=== PATIENT | male | born 1980 | race Caucasian/White ===

== ENCOUNTER 2019-12-01 10:39 | Emergency (ER) | payer OTHER ==
[~2019-12-01] VITALS: Ht 193 cm; Wt 89.8 kg
[~2019-12-01 10:39] MED LIST: ACYC400 PO; ALBU90OI INH; ATEN25; ATEN50 PO; AZIT250 PO; CEPH500 PO; CIPR500 PO; CITA20; CLOT1TC TOP; CODACE30 PO; CYCL10; CYCL10 PO; Cheratussin AC118 ML PO; Cleocin HCl300 MG PO; DOCU100 PO; DOXY100 PO; FAMO20 PO; Flonase 0.05% N16 GM; GUAI600T33 PO; GUAPSEER PO; HYDACE10B PO; HYDACE5 PO; HYDPAM50; IBUP600; IBUP800 PO; KETO10 PO; LORA1 PO; NAPR250 PO; NAPR375; NAPR500 PO; NEOPOLHYDS OT; OXYACE5T; OXYACE5T PO; PRED20 PO; PROC10 PO; PSEU120ER PO; RANI150; RXCODACET PO; RXHYDACE PO; RXSULTRIDS PO; SULTRIDS PO; Sudogest30 MG PO; TRAM50 PO; UNK ABX; UNKNOWN BP MED; [UNRECOGNIZED DRUG - REMARK]
[2019-12-01] MEDS ORDERED: Roxicodone5 MG PO (11:25)
[2019-12-01] MEDS ORDERED: ONDA4ODT MM (11:25)
[2019-12-01] MEDS ORDERED: Cleocin HCl300 MG PO (11:25)
== END 2019-12-01 11:49 | disposition home or self-care (01) ==
LOC: ER 10:39
DX: K08.89 Other specified disorders of teeth and supporting structures (principal); I10 Essential (primary) hypertension; J45.909 Unspecified asthma, uncomplicated; Z88.0 Allergy status to penicillin; Z91.030 Bee allergy status; Z91.02 Food additives allergy status; Z88.8 Allergy status to other drugs, medicaments and biological substances; Z88.5 Allergy status to narcotic agent; Z79.899 Other long term (current) drug therapy; Z87.891 Personal history of nicotine dependence
CPT/HCPCS: 99283

== ENCOUNTER 2020-01-13 14:56 | Observation (INO) | payer OTHER ==
[~2020-01-13] VITALS: Ht 188 cm; Wt 89.0 kg
[~2020-01-13 14:56] MED LIST changes: +ONDA4ODT MM; +Roxicodone5 MG PO
[2020-01-13 15:41] LABS: BASOPHILS ABSOLUTE AUTO 0.04 K/mm3 (0.00-0.23); BASOPHILS PERCENT AUTO 1 % (0-2); EOSINOPHILS ABSOLUTE AUTO 0.18 K/mm3 (0.00-0.68); EOSINOPHILS PERCENT AUTO 3 % (0-6); Hematocrit 47.9 % (37.0-53.0); Hemoglobin 16.2 g/dL (13.5-17.5); IMMATURE GRAN ABSOLUTE AUTO 0.02 K/mm3 (0.00-0.10); IMMATURE GRAN PERCENT AUTO 0 % (0-1); LYMPHOCYTES ABSOLUTE AUTO 1.56 K/mm3 (0.84-5.20); LYMPHOCYTES PERCENT AUTO 23 % (21-46); MONOCYTES ABSOLUTE AUTO 0.47 K/mm3 (0.16-1.47); MONOCYTES PERCENT AUTO 7 % (4-13); Mean Corpuscular HGB 30.9 pg (26.0-34.0); Mean Corpuscular HGB Conc 33.8 g/dL (31.5-36.5); Mean Corpuscular Volume 91 fL (80-100); NEUTROPHILS ABSOLUTE AUTO 4.59 K/mm3 (1.96-9.15); NEUTROPHILS PERCENT AUTO 67 % (41-73); Platelet Count 122 K/mm3 (150-400); RDW Coefficient Variation 12.7 % (11.7-14.2); RDW Standard Deviation 42.9 fL (35.1-46.3); Red Blood Cell Count 5.24 M/mm3 (4.30-5.90); White Blood Cell Count 6.86 K/mm3 (4.00-11.30)
[2020-01-13] MEDS ORDERED: AMLO5 PO (15:41)
[2020-01-13] MEDS ORDERED: Lisinopril2.5 MG PO (15:42)
[2020-01-13] MEDS ORDERED: SERT100 PO (15:42)
[2020-01-13] MEDS ORDERED: CLON.1 PO (15:42)
[2020-01-13] MEDS ORDERED: OMEP20ER PO (15:43)
[2020-01-13 15:54] LABS: Alanine Aminotransfer (ALT/SGP 73 U/L (12-78); Albumin, Blood 3.8 g/dL (3.4-5.0); Albumin/Globulin Ratio 1.1 (0.8-1.8); Alk Phos 96 U/L (50-136); Anion Gap 5 mmol/L (6-16); Aspartate Aminotrans (AST/SGOT 34 U/L (12-37); Bilirubin, Total 0.5 mg/dL (0.1-1.0); Blood Urea Nitrogen 14 mg/dL (8-24); Bun/Creatinine Ratio 16.5 (12.0-20.0); CO2, Blood 27 mmol/L (21-32); Calcium, Blood 8.7 mg/dL (8.5-10.1); Chloride, Blood 109 mmol/L (98-108); Creatinine, Blood 0.85 mg/dL (0.60-1.20); Globulin, Blood 3.5 g/dL (2.2-4.0); Glomerular Filtration Rate >60 (60-); Glucose, Blood 81 mg/dL (70-99); Potassium, Blood 3.8 mmol/L (3.5-5.5); Sodium, Blood 141 mmol/L (136-145); Total Protein, Blood 7.3 g/dL (6.4-8.2); Troponin I <0.015 ng/mL (0.000-0.040)
--- NOTE | 2020-01-13 16:31 | NUR ---
Echocardiogram completed.
[2020-01-13 17:25] LABS: U Amphetamine Screen Not Detected; U Barbituate Screen Not Detected; U Benzodiazapine Screen Not Detected; U Buprenorphine Screen Not Detected; U Cannabinoids Screen Not Detected; U Cocaine Screen Not Detected; U Methadone Screen Not Detected; U Methamphetamine Screen Not Detected; U Opiates Screen Not Detected; U Oxycodone Screen Not Detected; U Phencyclidine Screen Not Detected; U Propoxyphene Screen Not Detected
--- NOTE | 2020-01-13 23:27 | NUR ---
CHEST PAIN/CHEST PALPATIONS PT CHEST PAIN HAS IMPROVED WITH SCHEDULED IV TORADOL. PT PAIN DECREASED FROM 5 TO 3-4 (0-10). HOWEVER, PT COMPLAINING OF CHEST PALPATIONS, AND INCREASED PAIN WITH THE PALPATATIONS THAT GO FROM 3-5 (0-10). TELE IN PLACE WITH OCCASIONAL PVC'S. 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 PT COMPLAINING OF NAUSEA AND SOME SOB WITH THE PALPATIONS. MEDICATED FOR NAUSEA. DR. LONDON CALLED AND NOTIFIED OF PT CHEST PALPATIONS AND PAIN. RECEIVED ORDER FOR PO POTASSIUM TO HELP EASE PALPATIONS. AND MELATONIN FOR SLEEP. NO ADDITIIONAL ORDERS FOR CHEST PAIN. WILL CONTINUE TO MONITOR.
[2020-01-14 03:05] LABS: BASOPHILS ABSOLUTE AUTO 0.04 K/mm3 (0.00-0.23); BASOPHILS PERCENT AUTO 1 % (0-2); EOSINOPHILS ABSOLUTE AUTO 0.25 K/mm3 (0.00-0.68); EOSINOPHILS PERCENT AUTO 4 % (0-6); Hematocrit 44.1 % (37.0-53.0); Hemoglobin 14.8 g/dL (13.5-17.5); IMMATURE GRAN ABSOLUTE AUTO 0.02 K/mm3 (0.00-0.10); IMMATURE GRAN PERCENT AUTO 0 % (0-1); LYMPHOCYTES PERCENT AUTO 32 % (21-46); MONOCYTES ABSOLUTE AUTO 0.45 K/mm3 (0.16-1.47); MONOCYTES PERCENT AUTO 6 % (4-13); Mean Corpuscular HGB 30.9 pg (26.0-34.0); Mean Corpuscular HGB Conc 33.6 g/dL (31.5-36.5); Mean Corpuscular Volume 92 fL (80-100); Mean Platelet Volume 12.6 fL (9.1-12.4); NEUTROPHILS ABSOLUTE AUTO 4.03 K/mm3 (1.96-9.15); NEUTROPHILS PERCENT AUTO 57 % (41-73); Platelet Count 110 K/mm3 (150-400); RDW Coefficient Variation 12.9 % (11.7-14.2); RDW Standard Deviation 43.8 fL (35.1-46.3); Red Blood Cell Count 4.79 M/mm3 (4.30-5.90); White Blood Cell Count 7.09 K/mm3 (4.00-11.30)
[2020-01-14 03:32] LABS: Alanine Aminotransfer (ALT/SGP 62 U/L (12-78); Albumin, Blood 3.4 g/dL (3.4-5.0); Albumin/Globulin Ratio 1.1 (0.8-1.8); Alk Phos 79 U/L (50-136); Anion Gap 2 mmol/L (6-16); Aspartate Aminotrans (AST/SGOT 30 U/L (12-37); Bilirubin, Total 0.4 mg/dL (0.1-1.0); Blood Urea Nitrogen 16 mg/dL (8-24); Bun/Creatinine Ratio 17.8 (12.0-20.0); CHOL/HDL RATIO 3.7; CO2, Blood 30 mmol/L (21-32); Calcium, Blood 8.2 mg/dL (8.5-10.1); Chloride, Blood 106 mmol/L (98-108); Cholesterol 149 mg/dL (50-200); Glomerular Filtration Rate >60 (60-); Glucose, Blood 88 mg/dL (70-99); HDL Cholesterol 40 mg/dL (>39); LDL/HDL RATIO 2.2; Low Density Lipoprotein Chol 89 mg/dL (0-110); Potassium, Blood 4.3 mmol/L (3.5-5.5); Sodium, Blood 138 mmol/L (136-145); Total Protein, Blood 6.4 g/dL (6.4-8.2); Triglycerides 100 mg/dL (30-160); Troponin I <0.015 ng/mL (0.000-0.040); Very Low Density Lipoprot Chol 20 mg/dL (6-32)
--- NOTE | 2020-01-14 05:21 | NUR ---
SHIFT SUMMARY PT HAS CHEST PAIN OVERNIGHT THAT HAS GRADUALLY RESOLVED T/O THE NIGHT. PT PAIN WAS 5(0-10) AND CAME DOWN TO A 2 (0-10). PT MEDICATED WITH IV TORADOL WHICH PROVIDED RELIEF. PT SB ON TELE WITH OCCASIONAL PVC'S. PT REPORTS FEELING CHEST PALPITATIONS WITH INCREASED PAIN 5 (0-10) AND SOB THAT QUICKLY RESOLVES ONCE PALPITAIONS END. PT ALSO REPORTS SOME NAUSEA THAT IS RELIEVED WITH ZOFRAN. PT SKIN IS WARM AND DRY. VITALS ARE STABLE. TRENDING TROPONIN'S HAVE BEEN NEGATIVE. DR. MC AND DR. LONDON NOTIFIED OF PT COMPLAINTS OF PALPATIONS/PVC'S AND CONTINUED CHEST PAIN. PO POTASSIUM ORDERED BUT NO ADDITIONAL ORDERS GIVEN. THERE HAVE BEEN NO OTHER ACUTE CHANGES OVERNIGHT. PT INDEPENDENT IN THE ROOM. A/OX4. BED IN LOWEST POSITION, CALL LIGHT WITHIN REACH.
--- NOTE | 2020-01-14 10:56 | NUR ---
PATIENT IS PLEASANT, ALERT AND ORIENTED. HAD HIS STRESS PART OF HIS STRESS TEST TODAY. REPORTS THAT HE IS JUST WAITING TO SEE IF HE IS GOING HOME. AWAITING HIS STRESS TEST PICTURES THEN HE WILL GO HOME.
--- NOTE | 2020-01-14 10:56 | NUR ---
HOLDING MEDICATIONS PER PATIENT REQUEST, HE IS HOPING TO GO HOME TODAY AND TAKE HIS MEDICATIONS.
[2020-01-14] MEDS ORDERED: COLCHICINE0.6 MG PO (13:08)
[2020-01-14] MEDS ORDERED: METO25 PO (13:08)
[2020-01-14] MEDS ORDERED: ASPI325 PO (13:08)
--- NOTE | 2020-01-14 13:52 | NUR ---
DISCHARGE SUMMARY NO ACUTE CONCERNS AT TIME OF DISCHARGE. PATIENT WALKED OUT WITH NURSE. ALL MEDICATIONS SENT TO PHARMACY OF CHOICE. IV REMOVED PRIOR TO DISCHARGE.,
== END 2020-01-14 13:22 | disposition home or self-care (01) ==
LOC: ER 14:56 → MEDS 18:55
PROVIDERS: Emergency Medicine; ADMIT Internal Medicine
DX: R07.89 Other chest pain (principal); F41.9 Anxiety disorder, unspecified; I10 Essential (primary) hypertension; I49.3 Ventricular premature depolarization; Z88.0 Allergy status to penicillin; Z88.8 Allergy status to other drugs, medicaments and biological substances; Z79.82 Long term (current) use of aspirin; Z79.899 Other long term (current) drug therapy; Z87.891 Personal history of nicotine dependence; J45.909 Unspecified asthma, uncomplicated
CPT/HCPCS: 36415; 36416; 71046; 71275; 74175; 78452; 80053; 80061; 84443; 84484; 85025; 85651; 86140; 93005; 93010; 93017; 93306; 99285-25; A9270; A9270-GY; A9500; J0706; J1885; J2405; J2785; Q9967

== ENCOUNTER 2020-06-20 12:15 | Emergency (ER) | payer OTHER ==
[~2020-06-20] VITALS: Ht 190.5 cm; Wt 100.7 kg
[~2020-06-20 12:15] MED LIST changes: +AMLO5 PO; +ASPI325 PO; +CLON.1 PO; +COLCHICINE0.6 MG PO; +Lisinopril2.5 MG PO; +METO25 PO; +OMEP20ER PO; +SERT100 PO
[2020-06-20 12:47] LABS: BASOPHILS ABSOLUTE AUTO 0.05 K/mm3 (0.00-0.23); BASOPHILS PERCENT AUTO 1 % (0-2); EOSINOPHILS ABSOLUTE AUTO 0.29 K/mm3 (0.00-0.68); EOSINOPHILS PERCENT AUTO 4 % (0-6); Hematocrit 46.7 % (37.0-53.0); Hemoglobin 16.5 g/dL (13.5-17.5); IMMATURE GRAN ABSOLUTE AUTO 0.02 K/mm3 (0.00-0.10); IMMATURE GRAN PERCENT AUTO 0 % (0-1); LYMPHOCYTES ABSOLUTE AUTO 1.29 K/mm3 (0.84-5.20); LYMPHOCYTES PERCENT AUTO 18 % (21-46); MONOCYTES ABSOLUTE AUTO 0.52 K/mm3 (0.16-1.47); MONOCYTES PERCENT AUTO 7 % (4-13); Mean Corpuscular HGB 31.4 pg (26.0-34.0); Mean Corpuscular HGB Conc 35.3 g/dL (31.5-36.5); Mean Corpuscular Volume 89 fL (80-100); Mean Platelet Volume 12.3 fL (9.1-12.4); NEUTROPHILS ABSOLUTE AUTO 5.15 K/mm3 (1.96-9.15); NEUTROPHILS PERCENT AUTO 70 % (41-73); Platelet Count 142 K/mm3 (150-400); RDW Coefficient Variation 12.8 % (11.7-14.2); RDW Standard Deviation 41.5 fL (35.1-46.3); Red Blood Cell Count 5.26 M/mm3 (4.30-5.90); White Blood Cell Count 7.32 K/mm3 (4.00-11.30)
[2020-06-20 13:01] LABS: Prothrombin Time Results 10.7 Sec (9.7-11.5)
[2020-06-20 13:11] LABS: Alanine Aminotransfer (ALT/SGP 69 U/L (12-78); Albumin, Blood 3.7 g/dL (3.4-5.0); Albumin/Globulin Ratio 0.9 (0.8-1.8); Alk Phos 104 U/L (50-136); Anion Gap 6 mmol/L (6-16); Aspartate Aminotrans (AST/SGOT 28 U/L (12-37); Bilirubin, Total 0.9 mg/dL (0.1-1.0); Blood Urea Nitrogen 16 mg/dL (8-24); Bun/Creatinine Ratio 15.7 (12.0-20.0); C-REACTIVE PROTEIN, EXT RANGE <0.290 mg/dL (0.000-0.300); CO2, Blood 26 mmol/L (21-32); Calcium, Blood 8.8 mg/dL (8.5-10.1); Chloride, Blood 105 mmol/L (98-108); Creatinine, Blood 1.02 mg/dL (0.60-1.20); Globulin, Blood 3.9 g/dL (2.2-4.0); Glomerular Filtration Rate >60 (60-); Glucose, Blood 93 mg/dL (70-99); Potassium, Blood 4.1 mmol/L (3.5-5.5); Sodium, Blood 137 mmol/L (136-145); Total Protein, Blood 7.6 g/dL (6.4-8.2); Troponin I <0.015 ng/mL (0.000-0.040)
[2020-06-20] MEDS ORDERED: CODACE30 PO (14:52)
[2020-06-20] MEDS ORDERED: Robaxin-750750 MG PO (14:52)
== END 2020-06-20 15:08 | disposition home or self-care (01) ==
LOC: ER 12:15
PROVIDERS: Physician Assistant
DX: M94.0 Chondrocostal junction syndrome [Tietze] (principal); I10 Essential (primary) hypertension; Z79.899 Other long term (current) drug therapy; Z88.0 Allergy status to penicillin; Z88.5 Allergy status to narcotic agent; Z88.8 Allergy status to other drugs, medicaments and biological substances; Z79.82 Long term (current) use of aspirin; Z87.891 Personal history of nicotine dependence
CPT/HCPCS: 36415; 71046; 80053; 84484; 85025; 85610; 85651; 86140; 93005; 93010; 99285-25

== ENCOUNTER 2020-10-07 21:14 | Emergency (ER) | payer OTHER ==
[~2020-10-07] VITALS: Ht 188 cm; Wt 105.2 kg
[~2020-10-07 21:14] MED LIST changes: +Robaxin-750750 MG PO
[2020-10-07 21:43] LABS: BASOPHILS ABSOLUTE AUTO 0.06 K/mm3 (0.00-0.23); BASOPHILS PERCENT AUTO 1 % (0-2); EOSINOPHILS PERCENT AUTO 2 % (0-6); Hematocrit 46.7 % (37.0-53.0); Hemoglobin 16.2 g/dL (13.5-17.5); IMMATURE GRAN ABSOLUTE AUTO 0.03 K/mm3 (0.00-0.10); IMMATURE GRAN PERCENT AUTO 0 % (0-1); LYMPHOCYTES ABSOLUTE AUTO 2.34 K/mm3 (0.84-5.20); LYMPHOCYTES PERCENT AUTO 25 % (21-46); MONOCYTES ABSOLUTE AUTO 0.69 K/mm3 (0.16-1.47); MONOCYTES PERCENT AUTO 7 % (4-13); Mean Corpuscular HGB Conc 34.7 g/dL (31.5-36.5); Mean Corpuscular Volume 89 fL (80-100); Mean Platelet Volume 12.2 fL (9.1-12.4); NEUTROPHILS ABSOLUTE AUTO 6.25 K/mm3 (1.96-9.15); NEUTROPHILS PERCENT AUTO 65 % (41-73); Platelet Count 165 K/mm3 (150-400); RDW Coefficient Variation 13.1 % (11.7-14.2); Red Blood Cell Count 5.23 M/mm3 (4.30-5.90); White Blood Cell Count 9.57 K/mm3 (4.00-11.30)
[2020-10-07 22:03] LABS: Alanine Aminotransfer (ALT/SGP 55 U/L (12-78); Albumin, Blood 4.2 g/dL (3.4-5.0); Alk Phos 108 U/L (50-136); Anion Gap 6 mmol/L (6-16); Aspartate Aminotrans (AST/SGOT 32 U/L (12-37); Bilirubin, Total 0.6 mg/dL (0.1-1.0); Blood Urea Nitrogen 16 mg/dL (8-24); Bun/Creatinine Ratio 16.3 (12.0-20.0); CO2, Blood 26 mmol/L (21-32); Calcium, Blood 9.2 mg/dL (8.5-10.1); Chloride, Blood 107 mmol/L (98-108); Creatinine, Blood 0.98 mg/dL (0.60-1.20); Glomerular Filtration Rate >60 (60-); Glucose, Blood 80 mg/dL (70-99); Potassium, Blood 3.8 mmol/L (3.5-5.5); Sodium, Blood 139 mmol/L (136-145); Total Protein, Blood 8.2 g/dL (6.4-8.2)
[2020-10-07 22:41] LABS: International Normalized Ratio 1.01; Prothrombin Time Results 10.9 Sec (9.7-11.5)
== END 2020-10-08 00:15 | disposition home or self-care (01) ==
LOC: ER 21:14
PROVIDERS: Physician Assistant
DX: K29.70 Gastritis, unspecified, without bleeding (principal); K92.0 Hematemesis; I10 Essential (primary) hypertension; Z79.899 Other long term (current) drug therapy; Z87.891 Personal history of nicotine dependence
CPT/HCPCS: 36415; 74176; 80053; 82140; 83690; 85025; 85610; 85730; 86850; 86900; 86901; 96374; 99285-25; A9270; C9113

== ENCOUNTER 2020-11-04 08:01 | Day surgery (SDC) | payer OTHER ==
[~2020-11-04] VITALS: Ht 190.5 cm; Wt 100.4 kg
[~2020-11-04 08:01] MED LIST changes: +AMLO10 PO; +ASPI325EC PO
== END 2020-11-04 10:00 | disposition home or self-care (01) ==
LOC: ORSCSDS 08:01
PROVIDERS: Internal Medicine Gastroenterology
PROC: 0DB68ZX Excision of Stomach, Via Natural or Artificial Opening Endoscopic, Diagnostic (ICD-10-PCS; principal; 2020-11-04 09:15)
PROC: 0DBK8ZX Excision of Ascending Colon, Via Natural or Artificial Opening Endoscopic, Diagnostic (ICD-10-PCS; principal; 2020-11-04 09:15)
DX: K62.5 Hemorrhage of anus and rectum (principal); R19.7 Diarrhea, unspecified; D12.2 Benign neoplasm of ascending colon; B19.20 Unspecified viral hepatitis C without hepatic coma; K64.8 Other hemorrhoids; F41.8 Other specified anxiety disorders; F43.10 Post-traumatic stress disorder, unspecified; Z87.891 Personal history of nicotine dependence; Z79.899 Other long term (current) drug therapy
CPT/HCPCS: 88305; 88342; J2250; J2704; J7120

== ENCOUNTER 2021-09-20 16:59 | Emergency (ER) | payer OTHER ==
[~2021-09-20] VITALS: Ht 188 cm; Wt 97.5 kg
[~2021-09-20 16:59] MED LIST changes: +ACET500 PO; +Percocet 5-3251 EACH PO
== END 2021-09-20 22:11 | disposition home or self-care (01) ==
LOC: ER 16:59
DX: M54.42 Lumbago with sciatica, left side (principal); M54.41 Lumbago with sciatica, right side; G89.29 Other chronic pain; I10 Essential (primary) hypertension; J45.909 Unspecified asthma, uncomplicated; F17.210 Nicotine dependence, cigarettes, uncomplicated; Z91.030 Bee allergy status; Z88.0 Allergy status to penicillin; Z88.8 Allergy status to other drugs, medicaments and biological substances; Z91.018 Allergy to other foods; Z79.899 Other long term (current) drug therapy; Z87.828 Personal history of other (healed) physical injury and trauma
CPT/HCPCS: A9270; J1885

== ENCOUNTER 2021-12-01 10:31 | Emergency (ER) | payer OTHER ==
[~2021-12-01] VITALS: Ht 188 cm; Wt 97.1 kg
== END 2021-12-01 11:36 | disposition home or self-care (01) ==
LOC: ER 10:31
DX: M25.512 Pain in left shoulder (principal); I10 Essential (primary) hypertension; J45.909 Unspecified asthma, uncomplicated; F17.210 Nicotine dependence, cigarettes, uncomplicated
CPT/HCPCS: 99282

== ENCOUNTER 2021-12-03 18:00 | Emergency (ER) | payer OTHER ==
[~2021-12-03] VITALS: Ht 188 cm; Wt 97.1 kg
[2021-12-03] MEDS ORDERED: KETO10 PO (19:00)
== END 2021-12-03 19:22 | disposition home or self-care (01) ==
LOC: ER 18:00
DX: M79.602 Pain in left arm (principal); I10 Essential (primary) hypertension; J45.909 Unspecified asthma, uncomplicated; F17.210 Nicotine dependence, cigarettes, uncomplicated; Z88.0 Allergy status to penicillin; Z88.5 Allergy status to narcotic agent; Z88.8 Allergy status to other drugs, medicaments and biological substances; Z91.09 Other allergy status, other than to drugs and biological substances; Z79.899 Other long term (current) drug therapy
CPT/HCPCS: 96372; 99283-25; A9270; J1885

== ENCOUNTER 2022-06-14 10:48 | Emergency (ER) | payer OTHER ==
[~2022-06-14] VITALS: Ht 188 cm; Wt 104.3 kg
[2022-06-14] MEDS ORDERED: LEVO750 PO (11:29)
== END 2022-06-14 11:45 | disposition home or self-care (01) ==
LOC: ER 10:48
DX: J32.9 Chronic sinusitis, unspecified (principal); I10 Essential (primary) hypertension; J45.909 Unspecified asthma, uncomplicated; F17.210 Nicotine dependence, cigarettes, uncomplicated; Z88.0 Allergy status to penicillin; Z88.5 Allergy status to narcotic agent; Z91.030 Bee allergy status; Z91.018 Allergy to other foods; Z79.899 Other long term (current) drug therapy
CPT/HCPCS: 99282

== ENCOUNTER 2023-12-08 08:50 | Emergency (ER) | payer OTHER ==
[~2023-12-08] VITALS: Ht 185.4 cm; Wt 90.7 kg
[~2023-12-08 08:50] MED LIST changes: +LEVO750 PO; +METPRE4DP PO; +Norco 5-325 Ta1 EACH PO
[2023-12-08] MEDS ORDERED: OMEP20ER PO (09:03)
[2023-12-08] MEDS ORDERED: Lidocaine 2% Viscous Soln 15 ML UDC PO ONE (09:20)
[2023-12-08] MEDS ORDERED: Mag Hydrox/AL Hydrox/Simeth 30 ML UDC PO ONE (09:20)
[2023-12-08] MEDS ORDERED: Acetaminophen 500 MG Tab PO ONE (09:20)
[2023-12-08 09:25] LABS: BASOPHILS ABSOLUTE AUTO 0.05 K/mm3 (0.00-0.23); BASOPHILS PERCENT AUTO 1 % (0-2); EOSINOPHILS ABSOLUTE AUTO 0.23 K/mm3 (0.00-0.68); EOSINOPHILS PERCENT AUTO 3 % (0-6); Hematocrit 48.5 % (37.0-53.0); Hemoglobin 16.7 g/dL (13.5-17.5); IMMATURE GRAN ABSOLUTE AUTO 0.02 K/mm3 (0.00-0.10); IMMATURE GRAN PERCENT AUTO 0 % (0-1); LYMPHOCYTES ABSOLUTE AUTO 1.73 K/mm3 (0.84-5.20); LYMPHOCYTES PERCENT AUTO 24 % (21-46); MONOCYTES ABSOLUTE AUTO 0.49 K/mm3 (0.16-1.47); MONOCYTES PERCENT AUTO 7 % (4-13); Mean Corpuscular HGB Conc 34.4 g/dL (31.5-36.5); Mean Corpuscular Volume 93 fL (80-100); Mean Platelet Volume 12.4 fL (9.1-12.4); NEUTROPHILS ABSOLUTE AUTO 4.75 K/mm3 (1.96-9.15); NEUTROPHILS PERCENT AUTO 65 % (41-73); Platelet Count 146 K/mm3 (150-400); RDW Coefficient Variation 13.4 % (11.7-14.2); RDW Standard Deviation 46.1 fL (35.1-46.3); Red Blood Cell Count 5.22 M/mm3 (4.30-5.90); White Blood Cell Count 7.27 K/mm3 (4.00-11.30)
[2023-12-08] MEDS ORDERED: Ondansetron HCl 2 MG / ML 2ML Vial IV ONE (09:25)
[2023-12-08 09:44] LABS: Albumin, Blood 4.1 g/dL (3.4-5.0); Albumin/Globulin Ratio 1.2 (0.8-1.8); Bilirubin, Total 1.3 mg/dL (0.1-1.0); Bun/Creatinine Ratio 16.1 (12.0-20.0); Creatinine, Blood 0.93 mg/dL (0.60-1.20); Globulin, Blood 3.5 g/dL (2.2-4.0); Potassium, Blood 4.1 mmol/L (3.5-5.5); Total Protein, Blood 7.6 g/dL (6.4-8.2)
[2023-12-08 09:47] LABS: Albumin, Blood 4.1 g/dL (3.4-5.0); Albumin/Globulin Ratio 1.2 (0.8-1.8); Bilirubin, Direct 0.3 mg/dL (0.0-0.3); Bilirubin, Indirect 0.9 mg/dL (0.1-0.7); Bilirubin, Total 1.2 mg/dL (0.1-1.0); Globulin, Blood 3.5 g/dL (2.2-4.0); Total Protein, Blood 7.6 g/dL (6.4-8.2)
[2023-12-08 12:37] VITALS: BP 138/90
== END 2023-12-08 12:40 | disposition home or self-care (01) ==
LOC: ER 08:50
PROVIDERS: Student in an Organized Health Care Education/Training Program
DX: R10.13 Epigastric pain (principal); R10.31 Right lower quadrant pain; R10.11 Right upper quadrant pain; J45.909 Unspecified asthma, uncomplicated; F17.210 Nicotine dependence, cigarettes, uncomplicated; Z79.899 Other long term (current) drug therapy; Z88.0 Allergy status to penicillin; Z91.030 Bee allergy status; Z91.048 Other nonmedicinal substance allergy status; Z88.5 Allergy status to narcotic agent; Z88.8 Allergy status to other drugs, medicaments and biological substances
CPT/HCPCS: 74177; 80053; 80076; 83605; 83690; 84484; 85025; 93005; 93010; 96374-59; 99284-25; A9270; J2405; Q9967

== ENCOUNTER 2024-12-01 07:35 | Emergency (ER) | payer OTHER ==
[~2024-12-01] VITALS: Ht 188 cm; Wt 99.8 kg
[2024-12-01] MEDS ORDERED: Ketorolac Tromethamine 15mg Vial IM ONE (08:20)
[2024-12-01] MEDS ORDERED: HYDROcodone 7.5-APAP 325 TAB PO ONE (08:20)
[2024-12-01] MEDS ORDERED: Percocet 5-3251 EACH PO (11:06)
[2024-12-01 11:28] VITALS: BP 145/100
== END 2024-12-01 11:25 | disposition home or self-care (01) ==
LOC: ER 07:35
DX: S82.842A Displaced bimalleolar fracture of left lower leg, initial encounter for closed fracture (principal); Y99.0 Civilian activity done for income or pay; Z88.0 Allergy status to penicillin; Z88.8 Allergy status to other drugs, medicaments and biological substances; Z88.5 Allergy status to narcotic agent; Z79.899 Other long term (current) drug therapy; J45.909 Unspecified asthma, uncomplicated; I10 Essential (primary) hypertension; F17.200 Nicotine dependence, unspecified, uncomplicated; W19.XXXA Unspecified fall, initial encounter
CPT/HCPCS: 27810; 73610; 96372-59; 99283-25; A9270; J1885